=== PATIENT | male | born 1955 | race Two or more races ===

== ENCOUNTER → 2021-07-04 | Emergency (ER) | payer OTHER ==
[~2021-07-04] VITALS: Ht 167.6 cm; Wt 59.0 kg
[~2021-07-04] MED LIST: [UNRECOGNIZED DRUG - REMARK]
== END | disposition left against medical advice (07) ==
LOC: ER 17:22
DX: S52.592A Other fractures of lower end of left radius, initial encounter for closed fracture (principal); S52.612A Displaced fracture of left ulna styloid process, initial encounter for closed fracture; W11.XXXA Fall on and from ladder, initial encounter; Y93.89 Activity, other specified; Y92.098 Other place in other non-institutional residence as the place of occurrence of the external cause; Y99.8 Other external cause status

== ENCOUNTER 2021-07-23 09:51 | Outpatient (CLI) | payer OTHER | END 2021-07-23 09:55 | disposition home or self-care (01) | LOC: RAD 09:51 | PROVIDERS: ATTEND Orthopaedic Surgery | DX: S52.532A Colles' fracture of left radius, initial encounter for closed fracture (principal) ==